=== PATIENT | female | born 1960 | race Caucasian/White ===

== ENCOUNTER 2016-07-19 16:42 | Inpatient (IN) ==
--- NOTE | 2016-07-19 20:33 | Internal Med History&Physical ---
<Arlene Ramirez M - Last Filed: 07/19/16 22:23> Date of Encounter: 07/19/16 Time of Encounter: 20:33 Assessment and Plan (1) Small bowel obstruction Current visit: No Status: Acute Patient presented with abdominal pain, nausea, and vomiting. CT abd/pelvis showed small obstruction involving portions of the ileum and jejunum with transition point anterior mid abdomen in the midline possibly relating to adhesions. NG tube to intermittent wall suction NPO IV zofran PRN for nausea IV toradol and dilaudid PRN for pain IV fluids 0.9NS at 100mL/hr Consult to Surgery, Spoke with Dr. Cobb, he will see patient tomorrow. (2) Hypertension Current visit: Yes Status: Acute Hold PO lisinopril Metoprolol 5mg IVP PRN Q6hr for SBP > 180 or DBP > 100 Qualifiers: Hypertension type: essential hypertension Qualified Code(s): I10 - Essential (primary) hypertension (3) Chronic pain Current visit: Yes Status: Acute Patient reports right leg with RSD, chronic pain after multiple surgeries. She takes methadone, vicodin and ibuprofen at home. Holding PO medications. IV toradol and dilaudid PRN for pain. If pain not controlled, consider consult to pain management. Narcan PRN for respiratory depression. Qualifiers: Chronic pain type: other chronic postprocedural pain Qualified Code(s): G89.28 - Other chronic postprocedural pain (4) DVT prophylaxis Current visit: Yes Status: Acute Ambulate with assistance anti-embolic stockings Lovenox 40mg SQ daily Internal Medicine - H&P: HPI Chief complaint: abd pain, vomiting Admitted From: Intrahospital Transfer Plans for Post Hospital Care: Home History of present illness: Ms. Blackman is a 56 year old female with hypertension, chronic pain syndrome, history of breast cancer status post bilateral mastectomy and colon cancer status post partial colectomy in remission who presented to [place] emergency department with abdominal pain nausea vomiting. She denies any chest pain, palpitations, headache, lightheadedness, dizziness. She reports she did have one normal bowel movement today. Pain is located in the upper abdomen and radiates back and forth across the abdomen, and is described as severe. He remission by ED was significant for elevated white blood cell count 15.8. Abdominal and pelvic CT showed small bowel obstruction and for allowing portions of the ileum and jejunum with transition point in the anterior mid abdomen in the midline possibly related to adhesions. On exam, patient is alert and oriented, in no acute distress. G-tube to low wall suction with scant amount of drainage. Has regular rate and rhythm, lungs are clear bilaterally to auscultation. Abdomen is distended with hypoactive bowel sounds diffuse tenderness worse in the epigastric area. Past Med Surg Social Fam HX - Past Medical History Medical history: cancer (breast CA s/p Bilateral mastectomy. Colon CA s/p partial colectomy), hypertension, other (Right leg chronic pain syndrome) Psychiatric history: anxiety, depression - Past Surgical History Surgical History: breast surgery, cancer surgery, colectomy, hysterectomy, orthopedic, other (multiple surgeries on RLE), FARIDA/BSO - Social History Smoking Status: Former smoker (40 pack year history) Smokeless Tobacco Status: No Alcohol use: none Drug use: none - Family History Mother Age: 88 Family Member Ethnicity: Non- Living Status: Still Living Hx Family Cancer: Yes (breast cancer) Hx Family Medical Disorders: (diabetes) Father Family Member Ethnicity: Non- Living Status: Age at : 50 Cause of : Parkinsons Hx Family Cancer: Yes (breast cancer) Hx Family Medical Disorders: Yes (renal disease) Internal Medicine - H&P: Meds Ibuprofen [Motrin] 800 mg PO Q8HR PRN 05/02/15 [History] Lamotrigine [Lamictal] 100 mg PO BID 05/02/15 [History] Methadone 10 mg PO Q12HR 05/02/15 [History] Anastrozole [Arimidex] 1 mg PO HS 07/19/16 [History] DiphenhydraMINE [Benadryl] 25 mg PO HS PRN 07/19/16 [History] LORazepam [Ativan] 0.5 mg PO BID PRN 07/19/16 [History] Lisinopril/Hydrochlorothiazide [Zestoretic 20-12.5 mg Tablet] 1 each PO QAM 03/25 [History] Oxycodone HCl/Acetaminophen [Percocet 5-325 mg Tablet] 1 each PO TID PRN [History] Sennosides/Docusate Sodium [Senna Plus] 4 each PO HS PRN 07/19/16 [History] Allergies Erythromycin Base Allergy (Verified 05/02/15 19:29) Anaphylaxis Penicillins [PCN] Allergy (Verified 05/02/15 19:29) Rash Tetracycline Allergy (Verified 05/02/15 19:29) Anaphylaxis All Systems PM: A 10-system review of systems was performed and is negative for pertinent findings except as documented above in the HPI. - Constitutional Constitutional: no chills, no fever(s), no night sweats - EENT Eyes: no change in vision, no discharge, no pain, no photophobia Ears: no ear discharge, no ear pain, no tinnitus Nose, mouth and throat: no dysphagia, no nasal discharge, no neck pain, no sore throat - Cardiovascular Cardiovascular ROS IM: no chest pain, no diaphoresis, no dyspnea, no lightheadedness, no palpitations, no syncope - Respiratory Respiratory: no cough, no dyspnea, no wheezing, no excessive phlegm production - Gastrointestinal Gastrointestinal: abdominal pain, bloating, nausea, vomiting, no diarrhea, no hematemesis, no hematochezia, no melena - Genitourinary Genitourinary: no change in urinary stream, no dysuria, no flank pain, no hematuria - Musculoskeletal Musculoskeletal ROS IM: no numbness, no tingling - Integumentary Integumentary IM: no rash, no unusual bruising - Neurological Neurological ROS: no confusion, no convulsions, no focal weakness, no numbness, no tingling, no tremor(s) - Hematologic/Lymphatic Hematologic/Lymphatic: no easy bruising - Constitutional Vitals: Temp Pulse Resp BP Pulse Ox 97.9 F 86 18 187/84 97 07/19/16 19:02 07/19/16 19:02 07/19/16 19:02 07/19/16 19:02 07/19/16 19:02 General appearance: Present: A&O X 3, no acute distress - Head Head exam: Present: atraumatic, normocephalic - Eye Eye exam: Present: PERRL, conjuntiva pink, sclera anicteric Pupils: Present: PERRL - Neck Neck exam general surgery: Present: supple, trachea midline. Absent: lymphadenopathy - Respiratory Respiratory exam: Present: CTAB. Absent: accessory muscle use, rales, rhonchi, wheezes - Cardiovascular Cardiovascular exam: Present: RRR, +S1, +S2. Absent: diastolic murmur, gallop, rubs, systolic murmur - GI/Abdominal GI/Abdominal exam: Present: diminished bowel sounds, distended, soft, tenderness , no peritoneal signs - Extremities Exam Extremities exam: Present: warm, radial pulses palpable and symetrical. Absent : calf tenderness, cyanotic, pedal edema - Neurological Exam Neurological exam: Present: CN II-XII intact, oriented X3, no focal deficits. Absent: facial droop, speech deficit - Skin Skin exam: Present: dry, intact Internal Med - H&P Results - Labs Labs: Labs from [facility] ED: Hgb 12.3 Hct 37.7 WBC 15.8 PLT 338 Na 137 K 4.5 Cl 105 CO2 21 BUN 19 Cr 0.82 Glu 192 <Tommy Diggs - Last Filed: 07/20/16 05:52> Date of Encounter: 07/19/16 Internal Medicine - H&P: HPI History of present illness: Ms. Blackman is a 56 year old female All Systems PM: A 10-system review of systems was performed and is negative for pertinent findings except as documented above in the HPI. - Constitutional Vitals: Temp Pulse Resp BP Pulse Ox 99.0 F 86 16 130/76 94 L 07/20/16 03:20 07/20/16 03:20 07/20/16 03:20 07/20/16 03:20 07/20/16 03:20 Internal Med - H&P Results - Impressions ITS Impressions KUB X-Ray 07/19/16 23:12 IMPRESSION: 1. Nasogastric tube tip terminates in the region of the gastric antrum/pylorus. D/ / Larisa Ramos MD / Larisa Ramos MD Interpreting Provider: Larisa Ramos MD - Attending Attestation I examined this patient and my medical decision-making was reviewed with the COOK CHILI/PA/Advanced Practice Nurse/Resident Physician. I agree with the documented findings, disposition and treatment plan as described except to the extent set forth below. 56 Y/F with abdominal bloating, nausea, vomiting. Had normal BM today. CT abdomen showed small bowel obstruction involving portions of jejunum and ileum with transition point in the mid abdomen in the midline possibly relating to adhesions. Dr Cobb from surgery notified. NPO, NG tube, analgesia.
[2016-07-19] MEDS ORDERED: Ondansetron 4 MG/2 ML VIAL IVP PRN (21:44)
[2016-07-19] MEDS ORDERED: *HR* HYDROmorphone (PF) 1 MG/ML SYRINGE IVP PRN ×2 (21:44→21:57)
[2016-07-19] MEDS ORDERED: Ketorolac 30 MG/ML VIAL IVP PRN (21:44)
[2016-07-19] MEDS ORDERED: Naloxone 0.4 MG/ML INJ IVP PRN (21:44)
[2016-07-19] MEDS ORDERED: *HR* Metoprolol 5 MG/5 ML VIAL IVP PRN (21:57)
[2016-07-20] MEDS: 0.9 % Sodium Chloride 1,000 ML IVC SCH ×3 (00:16→16:38)
[2016-07-20] MEDS ORDERED: *HR* OxyCODONE/APAP 5/325 TABLET PO PRN (05:42)
[2016-07-20] MEDS ORDERED: *HR* LORazepam 0.5 MG TABLET PO PRN (05:42)
[2016-07-20 05:44] LABS: Basophils % 0.3 %; Eosinophils % 0.1 %; Hematocrit 32.9 % (35.3-44.9); Hemoglobin 10.6 g/dL (11.5-15.4); Immature Granulocytes % 0.7 % (0-4); Lymphocytes % 13.5 %; Mean Corpuscular HGB Conc 32.2 g/dL (31.6-35.5); Mean Corpuscular Hemoglobin 29.7 pg (28.0-33.3); Mean Corpuscular Volume 92.2 fL (83.0-100.0); Mean Platelet Volume 9.9 fL (9.4-12.4); Monocytes # 0.9 K/mcL (0.0-1.3); Monocytes % 5.8 %; Platelet Count 331 K/mcL (140-400); Red Blood Count 3.57 M/mcL (3.82-4.97); Red Cell Distribution Width 13.2 % (11.5-14.5); Segmented Neutrophils % 79.6 %
[2016-07-20 06:01] LABS: BUN/Creatinine Ratio 22 (6-26); Blood Urea Nitrogen 17 mg/dL (7-20); Calcium 8.9 mg/dL (8.6-10.8); Carbon Dioxide 20 mEq/L (19-29); Chloride 107 mEq/L (98-109); Glucose 133 mg/dL (70-99); Osmolality,Calculated 291 (280-300); Potassium 4.3 mEq/L (3.5-4.5); Sodium 139 mEq/L (136-145); eGFR For African Americans > 60 (> 60); eGFR For Non-African Americans > 60 (> 60)
[2016-07-20] MEDS: *HR* Enoxaparin 40 MG/0.4 ML SYRINGE SQ SCH (06:23)
[2016-07-20] MEDS: *HR* Methadone 10 MG TABLET PO SCH ×4 (06:24→20:02)
[2016-07-20] MEDS: lamoTRIgine 100 MG TABLET PO SCH ×2 (08:41→20:03)
[2016-07-20] MEDS ORDERED: Lisinopril-HCTZ 20-12.5mg TABLET PO SCH (09:00)
[2016-07-20] MEDS ORDERED: Ondansetron 4 MG/2 ML VIAL IVP PRN (09:34)
--- NOTE | 2016-07-20 09:35 | Internal Med Progress Note ---
Date of Encounter: 07/20/16 Time of Encounter: 09:35 - Assessment and plan (1) Small bowel obstruction Current Visit: No Status: Acute Assessment and plan: CT abd/pelvis consistent with SBO involving portions of the ileum and jejunum with transition point anterior mid abdomen Likely secondary to adhesions, history of colon ca and bowel surgery in the past Continue NGT to low suction awaiting surgical consultation IV fluids NPO Pain control (2) Hypertension Current Visit: Yes Status: Chronic Assessment and plan: BP within acceptable limits continue current management Qualifiers: Hypertension type: essential hypertension Qualified Code(s): I10 - Essential (primary) hypertension (3) Chronic pain Current Visit: Yes Status: Acute Assessment and plan: chronically on Methadone, will continue Qualifiers: Chronic pain type: other chronic postprocedural pain Qualified Code(s): G89.28 - Other chronic postprocedural pain (4) Morbid obesity with BMI of 40.0-44.9, adult Current Visit: Yes Status: Chronic (5) DVT prophylaxis Current Visit: Yes Status: Acute Assessment and plan: Lovenox SQ (6) Anemia Current Visit: Yes Status: Acute Assessment and plan: Likely Dilutional No active bleeding noted at this time Will continue to monitor Qualifiers: Anemia type: unspecified type Qualified Code(s): D64.9 - Anemia, unspecified - Subjective Interval history: Patient seen and examined with present at bedside. Resting in bed, states her symptoms are better compared to the previous day. Reports of passing gas and no abd discomfort at this time. NGT hooked to suction continues to have significant billious drainage. Reports of chronic RLE pain due to reflex sympathetic dystrophy secondary to multiple surgeries in that leg. Reports of being on methadone for the chronic pain. - Constitutional Vitals: Temp Pulse Resp BP Pulse Ox 98.7 F 84 18 131/83 95 07/20/16 06:57 07/20/16 06:57 07/20/16 06:57 07/20/16 06:57 07/20/16 06:57 General appearance: Present: cooperative, A&O X 3 (NGT in place), morbidly obese , pleasant, no acute distress, answers questions appropriately - Head Head exam: Present: atraumatic, normocephalic - Eye Eye exam: Present: normal appearance, conjuntiva pink, sclera anicteric - Respiratory Respiratory exam: Present: CTAB. Absent: respiratory distress, wheezes - Cardiovascular Cardiovascular exam: Present: RRR, +S1, +S2 - GI/Abdominal GI/Abdominal exam: Present: normal bowel sounds, soft, no peritoneal signs. Absent: distended, guarding, rebound, rigid, tenderness - Extremities Exam Extremities exam: Present: pedal edema, warm, radial pulses palpable and symetrical. Absent: calf tenderness - Neurological Exam Neurological exam: Present: alert, oriented X3 - Psychiatric Psychiatric exam: Present: normal affect, normal mood Internal Medicine: Result - Labs CBC & Chem 7: 07/20/16 05:00 07/20/16 05:00 Labs: Short CBC 07/20/16 Range/Units 05:00 WBC 15.1 H (4.3-11.1) K/mcL Hgb 10.6 L D (11.5-15.4) g/dL Hct 32.9 L (35.3-44.9) % Plt Count 331 (140-400) K/mcL Neutrophils # 12.0 H (1.6-8.9) K/mcL BMP 07/20/16 05:00 Sodium 139 Potassium 4.3 Chloride 107 Carbon Dioxide 20 BUN 17 Creatinine 0.77 Glucose 133 H Calcium 8.9 - Impressions Impressions KUB X-Ray 07/19/16 23:12 IMPRESSION: 1. Nasogastric tube tip terminates in the region of the gastric antrum/pylorus. D/ / 07/20/2016 07:03:43 Larisa Ramos MD / sabina Interpreting Provider: Larisa Ramos MD Consult Discharge Plan - Plan Referrals: Scotty Ayala DO [Primary Care Provider] -
--- NOTE | 2016-07-20 15:28 | General Surgery Consult Note ---
Date of Encounter: 07/20/16 Time of Encounter: 11:05 Assessment and Plan (1) Small bowel obstruction Current Visit: No Status: Acute CT abd/pelvis showed small obstruction involving portions of the ileum and jejunum with transition point anterior mid abdomen in the midline possibly relating to adhesions. NG tube to LIWS NPO with bowel rest anti-emetics PRN for nausea Supportive care/pain control Continue IV fluids at 100mL/hr Consider SBFT Friday if no improvement. If NG output is increased tomorrow, consider acute abdominal series. Will continue to follow and evaluate. (2) History of colon cancer Current Visit: Yes Status: Acute (3) Hypertension Current Visit: Yes Status: Chronic Management per medicine service. Qualifiers: Hypertension type: essential hypertension Qualified Code(s): I10 - Essential (primary) hypertension (4) DVT prophylaxis Current Visit: Yes Status: Acute Ambulate with assistance anti-embolic stockings Lovenox 40mg SQ daily History of Present Illness Consult date: 07/19/16 Reason for consult: abdominal pain Requesting physician: Arlene Ramirez History of present illness: Ms. Blackman is a 56 year old female transferred from [place] ED for abdominal pain with associated nausea and vomiting. Patient denies any chest pain, lightheadedness, dizziness, dyspnea. She states the pain is severe and located in the upper abdomen and radiates across the abdomen. WBC in the ED found to be 15.8. Abdominal and pelvic CT showed small bowel obstruction, possibly related to adhesions. Patient states she feels alejandra overall today, but still lacking appetite. Ms. Blackman denies any flatus today. PMHx of HTN, chronic pain syndrome, Hx of breast cancer s/p bilateral mastectomy , and Hx of colon cancer s/p partial colectomy (approx 12-13 years ago). Past Med Surg Social Fam HX - Past Medical History Source: patient Medical history: cancer (breast CA s/p Bilateral mastectomy. Colon CA s/p partial colectomy), hypertension, other (Right leg chronic pain syndrome) Psychiatric history: anxiety, depression - Past Surgical History Surgical History: breast surgery, cancer surgery, colectomy, hysterectomy, orthopedic, other (multiple surgeries on RLE), FARIDA/BSO - Social History Smoking Status: Former smoker (40 pack year history) Smokeless Tobacco Status: No Alcohol use: none Drug use: none - Family History Mother Age: 88 Family Member Ethnicity: Non- Living Status: Still Living Hx Family Cancer: Yes (breast cancer) Hx Family Medical Disorders: (diabetes) Father Family Member Ethnicity: Non- Living Status: Age at : 50 Cause of : Parkinsons Hx Family Cancer: Yes (breast cancer) Hx Family Medical Disorders: Yes (renal disease) Medications and Allergies Ibuprofen [Motrin] 800 mg PO Q8HR PRN 05/02/15 [History] Lamotrigine [Lamictal] 100 mg PO BID 05/02/15 [History] Methadone 10 mg PO Q12HR 05/02/15 [History] Anastrozole [Arimidex] 1 mg PO HS 07/19/16 [History] DiphenhydraMINE [Benadryl] 25 mg PO HS PRN 07/19/16 [History] LORazepam [Ativan] 0.5 mg PO BID PRN 07/19/16 [History] Lisinopril/Hydrochlorothiazide [Zestoretic 20-12.5 mg Tablet] 1 each PO QAM 03/25 [History] Oxycodone HCl/Acetaminophen [Percocet 5-325 mg Tablet] 1 each PO TID PRN [History] Sennosides/Docusate Sodium [Senna Plus] 4 each PO HS PRN 07/19/16 [History] Allergies Erythromycin Base Allergy (Verified 05/02/15 19:29) Anaphylaxis Penicillins [PCN] Allergy (Verified 05/02/15 19:29) Rash Tetracycline Allergy (Verified 05/02/15 19:29) Anaphylaxis Review of Systems All systems PM: A 10-system review of systems was performed and is negative for pertinent findings except as documented above in the HPI. - Constitutional no chills, no fever(s) - EENT Nose, mouth and throat: no dysphagia - Cardiovascular no chest pain, no dyspnea - Respiratory no cough, no dyspnea - Gastrointestinal abdominal pain, nausea, vomiting, no diarrhea - Genitourinary Genitourinary: no dysuria - Musculoskeletal radiating pain into limb - Neurological no confusion General Surgery Exam Initial Vital Signs Temp Pulse Resp BP Pulse Ox 97.9 F 86 18 187/84 97 07/19/16 19:02 07/19/16 19:02 07/19/16 19:02 07/19/16 19:02 07/19/16 19:02 - General physical appearance well developed, well nourished, no distress - Eyes normal ocular movement - ENT normal mucosa, atraumatic, normocephalic - Neck trachea midline - Respiratory normal respiratory effort - Integumentary Integumentary general surgery: Present: warm and dry, no abnormal pigmentation - Neurologic Present: CN 2-12 grossly intact - Psychiatric Psychiatric general surgery: Present: A&Ox3, speech is normal, memory intact Exam Initial Vital Signs Temp Pulse Resp BP Pulse Ox 97.9 F 86 18 187/84 97 07/19/16 19:02 07/19/16 19:02 07/19/16 19:02 07/19/16 19:02 07/19/16 19:02 Results - Labs 07/20/16 05:00 07/20/16 05:00 Abnormal lab results WBC 15.1 K/mcL (4.3-11.1) H 07/20/16 05:00 RBC 3.57 M/mcL (3.82-4.97) L 07/20/16 05:00 Hgb 10.6 g/dL (11.5-15.4) L D 07/20/16 05:00 Hct 32.9 % (35.3-44.9) L 07/20/16 05:00 Neutrophils # 12.0 K/mcL (1.6-8.9) H 07/20/16 05:00 Glucose 133 mg/dL (70-99) H 07/20/16 05:00 POC Glucose 155 (58-89) H 07/20/16 11:19 Diabetes panel 07/20/16 Range/Units 05:00 Sodium 139 (136-145) mEq/L Potassium 4.3 (3.5-4.5) mEq/L Chloride 107 (98-109) mEq/L Carbon Dioxide 20 (19-29) mEq/L BUN 17 (7-20) mg/dL Creatinine 0.77 (0.57-1.11) mg/dL Glucose 133 H (70-99) mg/dL Calcium 8.9 (8.6-10.8) mg/dL Calcium panel 07/20/16 Range/Units 05:00 Calcium 8.9 (8.6-10.8) mg/dL Pituitary panel 07/20/16 Range/Units 05:00 Sodium 139 (136-145) mEq/L Potassium 4.3 (3.5-4.5) mEq/L Chloride 107 (98-109) mEq/L Carbon Dioxide 20 (19-29) mEq/L BUN 17 (7-20) mg/dL Creatinine 0.77 (0.57-1.11) mg/dL Glucose 133 H (70-99) mg/dL Calcium 8.9 (8.6-10.8) mg/dL Adrenal panel 07/20/16 Range/Units 05:00 Sodium 139 (136-145) mEq/L Potassium 4.3 (3.5-4.5) mEq/L Chloride 107 (98-109) mEq/L Carbon Dioxide 20 (19-29) mEq/L BUN 17 (7-20) mg/dL Creatinine 0.77 (0.57-1.11) mg/dL Glucose 133 H (70-99) mg/dL Calcium 8.9 (8.6-10.8) mg/dL All other labs normal. Consult Discharge Plan - Plan Referrals: Scotty Ayala DO [Primary Care Provider] -
[2016-07-20] MEDS: *HR* Morphine 2 MG/ML SYRINGE IVP PRN (15:36)
[2016-07-20] MEDS ORDERED: *HR* Metoprolol 5 MG/5 ML VIAL IVP PRN (15:59)
[2016-07-20] MEDS ORDERED: Water for inj. (sterile) 10 ML IV ONE (17:24)
[2016-07-20] MEDS: Ketorolac 30 MG/ML VIAL IVP PRN ×2 (17:39→23:45)
[2016-07-20] MEDS: *HR* LORazepam 2 MG/ML VIAL IVP PRN (17:39)
[2016-07-20] MEDS: Anastrozole 1 MG TABLET PO SCH (20:02)
[2016-07-21] MEDS: *HR* Methadone 10 MG TABLET PO SCH ×2 (06:25→17:18)
[2016-07-21] MEDS: *HR* Enoxaparin 40 MG/0.4 ML SYRINGE SQ SCH (06:25)
[2016-07-21 07:34] LABS: Basophils # 0.1 K/mcL (0.0-0.2); Basophils % 0.4 %; Eosinophils # 0.1 K/mcL (0.0-0.6); Eosinophils % 0.5 %; Hematocrit 32.8 % (35.3-44.9); Hemoglobin 10.5 g/dL (11.5-15.4); Immature Granulocytes % 0.6 % (0-4); Lymphocytes # 2.3 K/mcL (0.6-4.6); Lymphocytes % 19.8 %; Mean Corpuscular Hemoglobin 30.3 pg (28.0-33.3); Mean Corpuscular Volume 94.5 fL (83.0-100.0); Mean Platelet Volume 9.6 fL (9.4-12.4); Monocytes # 0.9 K/mcL (0.0-1.3); Monocytes % 7.4 %; Neutrophils # 8.2 K/mcL (1.6-8.9); Platelet Count 294 K/mcL (140-400); Red Blood Count 3.47 M/mcL (3.82-4.97); Red Cell Distribution Width 13.4 % (11.5-14.5); Segmented Neutrophils % 71.3 %
[2016-07-21 07:44] LABS: BUN/Creatinine Ratio 24 (6-26); Blood Urea Nitrogen 20 mg/dL (7-20); Calcium 9.1 mg/dL (8.6-10.8); Carbon Dioxide 26 mEq/L (19-29); Chloride 107 mEq/L (98-109); Glucose 115 mg/dL (70-99); Magnesium 1.8 mg/dL (1.6-2.6); Osmolality,Calculated 300 (280-300); Phosphorous 3.9 mg/dL (2.3-4.7); Potassium 3.7 mEq/L (3.5-4.5); Sodium 143 mEq/L (136-145); eGFR For African Americans > 60 (> 60); eGFR For Non-African Americans > 60 (> 60)
[2016-07-21] MEDS: Ketorolac 30 MG/ML VIAL IVP PRN ×3 (08:01→21:30)
[2016-07-21] MEDS: *HR* LORazepam 2 MG/ML VIAL IVP PRN ×2 (08:01→21:30)
[2016-07-21] MEDS: lamoTRIgine 100 MG TABLET PO SCH ×2 (08:02→20:37)
--- NOTE | 2016-07-21 14:58 | Internal Med Progress Note ---
Date of Encounter: 07/21/16 Time of Encounter: 14:57 - Assessment and plan (1) Small bowel obstruction Current Visit: No Status: Acute Assessment and plan: CT abd/pelvis consistent with SBO involving portions of the ileum and jejunum with transition point anterior mid abdomen Likely secondary to adhesions, history of colon ca and bowel surgery in the past Continue NGT to low suction surgical consultation appreciated IV fluids NPO Pain control (2) Hypertension Current Visit: Yes Status: Chronic Assessment and plan: BP within acceptable limits continue current management Qualifiers: Hypertension type: essential hypertension Qualified Code(s): I10 - Essential (primary) hypertension (3) Chronic pain Current Visit: Yes Status: Acute Assessment and plan: chronically on Methadone, will continue Qualifiers: Chronic pain type: other chronic postprocedural pain Qualified Code(s): G89.28 - Other chronic postprocedural pain (4) Morbid obesity with BMI of 40.0-44.9, adult Current Visit: Yes Status: Chronic (5) DVT prophylaxis Current Visit: Yes Status: Acute Assessment and plan: Lovenox SQ (6) Anemia Current Visit: Yes Status: Acute Assessment and plan: Likely Dilutional No active bleeding noted at this time Will continue to monitor Qualifiers: Anemia type: unspecified type Qualified Code(s): D64.9 - Anemia, unspecified - Subjective Interval history: Patient seen and examined at bedside. Resting in bed, states her symptoms are better compared to the previous day. Reports of having a small bowel movement in the last hour. - Constitutional Vitals: Temp Pulse Resp BP Pulse Ox 98.3 F 81 18 163/84 95 07/21/16 14:29 07/21/16 14:29 07/21/16 14:29 07/21/16 14:29 07/21/16 14:29 General appearance: Present: cooperative, A&O X 3 (NGT in place), morbidly obese , pleasant, no acute distress, answers questions appropriately - Head Head exam: Present: atraumatic, normocephalic - Eye Eye exam: Present: normal appearance, conjuntiva pink, sclera anicteric - Respiratory Respiratory exam: Present: CTAB. Absent: accessory muscle use, rales, rhonchi, wheezes - Cardiovascular Cardiovascular exam: Present: RRR, +S1, +S2. Absent: diastolic murmur, gallop, rubs, systolic murmur - GI/Abdominal GI/Abdominal exam: Present: hypoactive bowel sounds, soft, no peritoneal signs. Absent: rebound, tenderness - Extremities Exam Extremities exam: Present: pedal edema, warm, radial pulses palpable and symetrical. Absent: calf tenderness - Neurological Exam Neurological exam: Present: alert, oriented X3 - Psychiatric Psychiatric exam: Present: normal affect, normal mood Internal Medicine: Result - Labs CBC & Chem 7: 07/21/16 07:00 07/21/16 07:00 Labs: Short CBC 07/21/16 Range/Units 07:00 WBC 11.5 H (4.3-11.1) K/mcL Hgb 10.5 L (11.5-15.4) g/dL Hct 32.8 L (35.3-44.9) % Plt Count 294 (140-400) K/mcL Neutrophils # 8.2 (1.6-8.9) K/mcL BMP 07/21/16 07:00 Sodium 143 Potassium 3.7 Chloride 107 Carbon Dioxide 26 BUN 20 Creatinine 0.82 Glucose 115 H Calcium 9.1 - Impressions Impressions KUB X-Ray 07/19/16 23:12 IMPRESSION: 1. Nasogastric tube tip terminates in the region of the gastric antrum/pylorus. D/ / 07/20/2016 07:03:43 Larisa Ramos MD / sabina Interpreting Provider: Larisa Ramos MD Chest/Abdomen X-ray 07/21/16 08:21 IMPRESSION: Good position of the nasogastric tube. No evidence of bowel obstruction D/ / Rai Nichole MD / Rai Nichole MD Interpreting Provider: Rai Nichole MD - VTE Documentation of Mechanical Device: Graduated compression elastic hosiery Consult Discharge Plan - Plan Referrals: Scotty Ayala DO [Primary Care Provider] -
--- NOTE | 2016-07-21 15:47 | General Surgery Progress Note ---
Date of Encounter: 07/21/16 Time of Encounter: 10:10 - Assessment and Plan (1) Small bowel obstruction Current Visit: No Status: Acute CT abd/pelvis showed small obstruction involving portions of the ileum and jejunum with transition point anterior mid abdomen in the midline possibly relating to adhesions. AAS today showed good position of NG tube and no evidence of bowel obstruction. NG tube to LIWS (1816ml total yesterday) NPO with bowel rest anti-emetics PRN for nausea Supportive care/pain control Continue IV fluids @125ml/hr Consider SBFT Friday if no improvement. Will continue to follow and evaluate. (2) History of colon cancer Current Visit: Yes Status: Acute (3) Hypertension Current Visit: Yes Status: Chronic Management per medicine service. Qualifiers: Hypertension type: essential hypertension Qualified Code(s): I10 - Essential (primary) hypertension (4) DVT prophylaxis Current Visit: Yes Status: Acute Ambulate with assistance anti-embolic stockings Lovenox 40mg SQ daily Subjective Patient reports: other Narrative: Denies flatus or bowel movement. Denies vomiting. Admits to severe headache, mild rectal pressure, decreased urination. History of urinary incontinence. Objective Vital Signs - Last 8 Hours Temp Pulse Resp BP Pulse Ox 07/21/16 14:29 98.3 F 81 18 163/84 95 07/21/16 11:00 98.1 F 60 16 152/84 95 Intake and Output 07/20/16 07/21/16 07/21/16 23:59 07:59 15:59 Intake Total 103 / 103 1000 / 1000 Output Total 566 / 566 600 / 600 550 / 550 Balance -463 / -463 400 / 400 -550 / -550 Intake: IV Fluids 103 / 103 1000 / 1000 Water for inj. (sterile) 1 / 1 10 ML As IV .[facility] Rx#:[id number] 0.9 % Sodium Chloride 1, 102 / 102 1000 / 1000 000 ML @ 125 mls/hr IVC . Q8H [facility] Rx#:[id number] Oral 0 / 0 0 / 0 Output: Urine 450 / 450 200 / 200 100 / 100 Gastric Drainage 116 / 116 400 / 400 450 / 450 Other: Meal NPO dinner NPO lunch Stool Size Small Stool Consistency formed Stool Color Brown Weight 114.929 kg Blood Glucose* 116 116 125 Patient Weight 07/21/16 23:59 Weight 114.929 kg - General physical appearance well developed, well nourished, no distress - Eyes normal ocular movement - ENT normal mucosa, atraumatic, normocephalic - Neck Neck exam: trachea midline - Respiratory normal respiratory effort, clear to auscultation - Cardiovascular Cardiovascular exam: Present: tachycardia - Abdomen Abdomen: Present: bowel sounds present (hypoactive), soft, tender (diffuse) - Integumentary no rash - Neurologic CN 2-12 grossly intact - Psychiatric oriented to time, oriented to person, oriented to place, speech is normal, memory intact - Labs 07/21/16 07:00 07/21/16 07:00 Diabetes panel 07/21/16 Range/Units 07:00 Sodium 143 (136-145) mEq/L Potassium 3.7 (3.5-4.5) mEq/L Chloride 107 (98-109) mEq/L Carbon Dioxide 26 (19-29) mEq/L BUN 20 (7-20) mg/dL Creatinine 0.82 (0.57-1.11) mg/dL Glucose 115 H (70-99) mg/dL Calcium 9.1 (8.6-10.8) mg/dL Calcium panel 07/21/16 Range/Units 07:00 Calcium 9.1 (8.6-10.8) mg/dL Phosphorus 3.9 (2.3-4.7) mg/dL Pituitary panel 07/21/16 Range/Units 07:00 Sodium 143 (136-145) mEq/L Potassium 3.7 (3.5-4.5) mEq/L Chloride 107 (98-109) mEq/L Carbon Dioxide 26 (19-29) mEq/L BUN 20 (7-20) mg/dL Creatinine 0.82 (0.57-1.11) mg/dL Glucose 115 H (70-99) mg/dL Calcium 9.1 (8.6-10.8) mg/dL Adrenal panel 07/21/16 Range/Units 07:00 Sodium 143 (136-145) mEq/L Potassium 3.7 (3.5-4.5) mEq/L Chloride 107 (98-109) mEq/L Carbon Dioxide 26 (19-29) mEq/L BUN 20 (7-20) mg/dL Creatinine 0.82 (0.57-1.11) mg/dL Glucose 115 H (70-99) mg/dL Calcium 9.1 (8.6-10.8) mg/dL - VTE Documentation of Mechanical Device: Graduated compression elastic hosiery Consult Discharge Plan - Plan Referrals: Scotty Ayala DO [Primary Care Provider] -
[2016-07-21] MEDS: 0.9 % Sodium Chloride 1,000 ML IVC SCH (17:42)
[2016-07-21] MEDS: Anastrozole 1 MG TABLET PO SCH (20:37)
[2016-07-22] MEDS: 0.9 % Sodium Chloride 1,000 ML IVC SCH ×4 (01:41→21:44)
[2016-07-22] MEDS: *HR* Morphine 2 MG/ML SYRINGE IVP PRN ×2 (02:59→21:43)
[2016-07-22] MEDS: *HR* Enoxaparin 40 MG/0.4 ML SYRINGE SQ SCH (03:35)
[2016-07-22 05:12] LABS: Basophils % 0.4 %; Eosinophils % 0.3 %; Hematocrit 30.6 % (35.3-44.9); Hemoglobin 9.9 g/dL (11.5-15.4); Immature Granulocytes % 0.5 % (0-4); Lymphocytes # 1.9 K/mcL (0.6-4.6); Lymphocytes % 19.4 %; Mean Corpuscular HGB Conc 32.4 g/dL (31.6-35.5); Mean Corpuscular Hemoglobin 30.4 pg (28.0-33.3); Mean Corpuscular Volume 93.9 fL (83.0-100.0); Mean Platelet Volume 9.6 fL (9.4-12.4); Monocytes # 0.7 K/mcL (0.0-1.3); Monocytes % 7.4 %; Neutrophils # 7.1 K/mcL (1.6-8.9); Platelet Count 268 K/mcL (140-400); Red Blood Count 3.26 M/mcL (3.82-4.97); Red Cell Distribution Width 13.2 % (11.5-14.5)
[2016-07-22 05:25] LABS: BUN/Creatinine Ratio 27 (6-26); Blood Urea Nitrogen 21 mg/dL (7-20); Calcium 8.6 mg/dL (8.6-10.8); Carbon Dioxide 26 mEq/L (19-29); Chloride 107 mEq/L (98-109); Glucose 108 mg/dL (70-99); Magnesium 1.9 mg/dL (1.6-2.6); Osmolality,Calculated 304 (280-300); Phosphorous 4.5 mg/dL (2.3-4.7); Potassium 3.7 mEq/L (3.5-4.5); Sodium 145 mEq/L (136-145); eGFR For African Americans > 60 (> 60); eGFR For Non-African Americans > 60 (> 60)
[2016-07-22] MEDS: *HR* Methadone 10 MG TABLET PO SCH ×2 (06:02→18:10)
[2016-07-22] MEDS: lamoTRIgine 100 MG TABLET PO SCH ×2 (08:58→21:43)
[2016-07-22] MEDS: *HR* LORazepam 2 MG/ML VIAL IVP PRN (09:33)
[2016-07-22] MEDS ORDERED: Water for inj. (sterile) 10 ML IV ONE (09:40)
--- NOTE | 2016-07-22 10:07 | General Surgery Progress Note ---
Date of Encounter: 07/22/16 Time of Encounter: 07:25 - Assessment and Plan (1) Small bowel obstruction Current Visit: No Status: Acute CT abd/pelvis showed small obstruction involving portions of the ileum and jejunum with transition point anterior mid abdomen in the midline possibly relating to adhesions. AAS yesterday showed good position of NG tube and no evidence of bowel obstruction. NG tube to hernandez bag. If no nausea or vomiting with ice chips and continued flatus and BM can discontinue NG tube. NPO with bowel rest other than ice chips anti-emetics PRN for nausea Supportive care/pain control Continue IV fluids @125ml/hr Patient had a bowel movement yesterday Will continue to follow and evaluate. (2) History of colon cancer Current Visit: Yes Status: Acute (3) Hypertension Current Visit: Yes Status: Chronic Management per medicine service Qualifiers: Hypertension type: essential hypertension Qualified Code(s): I10 - Essential (primary) hypertension (4) DVT prophylaxis Current Visit: Yes Status: Acute Ambulate with assistance anti-embolic stockings Lovenox 40mg SQ daily Subjective Patient reports: no new complaints, feels better, bowel movement, afebrile Narrative: tolerating ice chips well, no nausea or vomiting Objective Vital Signs - Last 8 Hours Temp Pulse Resp BP Pulse Ox 07/22/16 06:00 98.0 F 78 18 138/68 98 07/22/16 03:38 98.6 F 78 14 143/76 95 Intake and Output 07/21/16 07/22/16 07/22/16 23:59 07:59 15:59 Intake Total 136 / 136 1224 / 1224 240 / 240 Output Total 600 / 600 1900 / 1900 0 / 0 Balance -464 / -464 -676 / -676 240 / 240 Intake: IV Fluids 136 / 136 864 / 864 0.9 % Sodium Chloride 1, 136 / 136 864 / 864 000 ML @ 125 mls/hr IVC . Q8H [facility] Rx#:[id number] Oral 0 / 0 360 / 360 240 / 240 Output: Urine 100 / 100 250 / 250 0 / 0 Gastric Drainage 500 / 500 1650 / 1650 Other: Meal NPO dinner NPO Weight 113.58 kg Blood Glucose* 123 109 Patient Weight 07/22/16 23:59 Weight 113.58 kg - General physical appearance well developed, well nourished, no distress - Eyes normal ocular movement - Neck Neck exam: trachea midline - Respiratory normal respiratory effort, clear to auscultation - Cardiovascular Cardiovascular exam: Present: RRR - Abdomen Abdomen: Present: bowel sounds present, soft, non tender - Integumentary no rash - Neurologic CN 2-12 grossly intact - Psychiatric oriented to time, oriented to person, oriented to place, speech is normal, memory intact - Labs 07/22/16 04:52 07/22/16 04:52 Diabetes panel 07/22/16 Range/Units 04:52 Sodium 145 (136-145) mEq/L Potassium 3.7 (3.5-4.5) mEq/L Chloride 107 (98-109) mEq/L Carbon Dioxide 26 (19-29) mEq/L BUN 21 H (7-20) mg/dL Creatinine 0.79 (0.57-1.11) mg/dL Glucose 108 H (70-99) mg/dL Calcium 8.6 (8.6-10.8) mg/dL Calcium panel 07/22/16 Range/Units 04:52 Calcium 8.6 (8.6-10.8) mg/dL Phosphorus 4.5 (2.3-4.7) mg/dL Pituitary panel 07/22/16 Range/Units 04:52 Sodium 145 (136-145) mEq/L Potassium 3.7 (3.5-4.5) mEq/L Chloride 107 (98-109) mEq/L Carbon Dioxide 26 (19-29) mEq/L BUN 21 H (7-20) mg/dL Creatinine 0.79 (0.57-1.11) mg/dL Glucose 108 H (70-99) mg/dL Calcium 8.6 (8.6-10.8) mg/dL Adrenal panel 07/22/16 Range/Units 04:52 Sodium 145 (136-145) mEq/L Potassium 3.7 (3.5-4.5) mEq/L Chloride 107 (98-109) mEq/L Carbon Dioxide 26 (19-29) mEq/L BUN 21 H (7-20) mg/dL Creatinine 0.79 (0.57-1.11) mg/dL Glucose 108 H (70-99) mg/dL Calcium 8.6 (8.6-10.8) mg/dL - VTE Documentation of Mechanical Device: Graduated compression elastic hosiery Consult Discharge Plan - Plan Referrals: Scotty Ayala DO [Primary Care Provider] - 07/31/16 9:30 am - Attending Attestation I examined this patient and my medical decision-making was reviewed with the SERVICE STATION OPERATOR/PA/Advanced Practice Nurse/Resident Physician. I agree with the documented findings, disposition and treatment plan as described except to the extent set forth below.
--- NOTE | 2016-07-22 10:57 | Internal Med Progress Note ---
Date of Encounter: 07/22/16 Time of Encounter: 10:55 - Assessment and plan (1) Small bowel obstruction Current Visit: No Status: Acute Assessment and plan: CT abd/pelvis consistent with SBO involving portions of the ileum and jejunum with transition point anterior mid abdomen Likely secondary to adhesions, history of colon ca and bowel surgery in the past Continue NGT to low suction surgical consultation appreciated IV fluids NPO Pain control Awaiting surgical clearance for removal of NGT and initiation of feeds (2) Hypertension Current Visit: Yes Status: Chronic Assessment and plan: BP within acceptable limits continue current management Qualifiers: Hypertension type: essential hypertension Qualified Code(s): I10 - Essential (primary) hypertension (3) Chronic pain Current Visit: Yes Status: Acute Assessment and plan: chronically on Methadone, will continue Qualifiers: Chronic pain type: other chronic postprocedural pain Qualified Code(s): G89.28 - Other chronic postprocedural pain (4) Morbid obesity with BMI of 40.0-44.9, adult Current Visit: Yes Status: Chronic (5) DVT prophylaxis Current Visit: Yes Status: Acute Assessment and plan: Lovenox SQ (6) Anemia Current Visit: Yes Status: Acute Assessment and plan: Likely Dilutional No active bleeding noted at this time Will continue to monitor Qualifiers: Anemia type: unspecified type Qualified Code(s): D64.9 - Anemia, unspecified - Subjective Interval history: Patient seen and examined at bedside. Resting in bed, states her symptoms are better compared to the previous day. No abd pain, nausea, vomiting reported at this time. - Constitutional Vitals: Temp Pulse Resp BP Pulse Ox 97.6 F 84 16 162/91 95 07/22/16 10:51 07/22/16 10:51 07/22/16 10:51 07/22/16 10:51 07/22/16 10:51 General appearance: Present: cooperative, A&O X 3 (NGT in place), morbidly obese , pleasant, no acute distress, answers questions appropriately - Head Head exam: Present: atraumatic, normocephalic - Eye Eye exam: Present: normal appearance, conjuntiva pink, sclera anicteric - Respiratory Respiratory exam: Present: CTAB. Absent: respiratory distress, wheezes - Cardiovascular Cardiovascular exam: Present: RRR, +S1, +S2. Absent: diastolic murmur, gallop, rubs, systolic murmur - GI/Abdominal GI/Abdominal exam: Present: distended (obese), normal bowel sounds, soft, no peritoneal signs. Absent: rebound, tenderness - Extremities Exam Extremities exam: Present: warm, radial pulses palpable and symetrical. Absent : pedal edema, tenderness - Neurological Exam Neurological exam: Present: alert, oriented X3 - Psychiatric Psychiatric exam: Present: normal affect, normal mood Internal Medicine: Result - Labs CBC & Chem 7: 07/22/16 04:52 07/22/16 04:52 Labs: Short CBC 07/22/16 Range/Units 04:52 WBC 9.9 (4.3-11.1) K/mcL Hgb 9.9 L (11.5-15.4) g/dL Hct 30.6 L (35.3-44.9) % Plt Count 268 (140-400) K/mcL Neutrophils # 7.1 (1.6-8.9) K/mcL BMP 07/22/16 04:52 Sodium 145 Potassium 3.7 Chloride 107 Carbon Dioxide 26 BUN 21 H Creatinine 0.79 Glucose 108 H Calcium 8.6 - Impressions Impressions Chest/Abdomen X-ray 07/21/16 08:21 IMPRESSION: Good position of the nasogastric tube. No evidence of bowel obstruction D/ / Rai Nichole MD / Rai Nichole MD Interpreting Provider: Rai Nichole MD - VTE Documentation of Mechanical Device: Graduated compression elastic hosiery Consult Discharge Plan - Plan Referrals: Scotty Ayala DO [Primary Care Provider] - 07/31/16 9:30 am
[2016-07-22] MEDS ORDERED: *HR* LORazepam 0.5 MG TABLET PO PRN (11:02)
[2016-07-22] MEDS ORDERED: Lisinopril-HCTZ 20-12.5mg TABLET PO SCH (11:03)
[2016-07-22] MEDS: Ketorolac 30 MG/ML VIAL IVP PRN (18:11)
[2016-07-22] MEDS: *HR* Metoprolol 5 MG/5 ML VIAL IVP SCH (18:41)
[2016-07-22] MEDS: Anastrozole 1 MG TABLET PO SCH (21:43)
[2016-07-22] MEDS: Pantoprazole 40 MG VIAL IVP SCH (22:31)
[2016-07-23] MEDS: *HR* Metoprolol 5 MG/5 ML VIAL IVP SCH ×2 (00:37→07:31)
[2016-07-23] MEDS: *HR* LORazepam 2 MG/ML VIAL IVP PRN (00:38)
[2016-07-23] MEDS: Ketorolac 30 MG/ML VIAL IVP PRN (05:03)
[2016-07-23] MEDS: *HR* Methadone 10 MG TABLET PO SCH ×2 (05:46→18:31)
[2016-07-23 06:05] LABS: Basophils # 0.1 K/mcL (0.0-0.2); Basophils % 0.5 %; Eosinophils # 0.1 K/mcL (0.0-0.6); Eosinophils % 0.9 %; Hematocrit 32.5 % (35.3-44.9); Hemoglobin 10.2 g/dL (11.5-15.4); Lymphocytes % 19.5 %; Mean Corpuscular HGB Conc 31.4 g/dL (31.6-35.5); Mean Corpuscular Hemoglobin 29.8 pg (28.0-33.3); Mean Platelet Volume 9.7 fL (9.4-12.4); Monocytes # 0.7 K/mcL (0.0-1.3); Monocytes % 6.5 %; Neutrophils # 7.2 K/mcL (1.6-8.9); Platelet Count 292 K/mcL (140-400); Red Blood Count 3.42 M/mcL (3.82-4.97); Red Cell Distribution Width 13.4 % (11.5-14.5); Segmented Neutrophils % 71.6 %
[2016-07-23 06:31] LABS: BUN/Creatinine Ratio 24 (6-26); Blood Urea Nitrogen 17 mg/dL (7-20); Calcium 8.8 mg/dL (8.6-10.8); Carbon Dioxide 26 mEq/L (19-29); Chloride 107 mEq/L (98-109); Glucose 82 mg/dL (70-99); Magnesium 1.8 mg/dL (1.6-2.6); Osmolality,Calculated 297 (280-300); Phosphorous 3.7 mg/dL (2.3-4.7); Potassium 3.4 mEq/L (3.5-4.5); Sodium 143 mEq/L (136-145); eGFR For African Americans > 60 (> 60); eGFR For Non-African Americans > 60 (> 60)
[2016-07-23] MEDS: *HR* Enoxaparin 40 MG/0.4 ML SYRINGE SQ SCH (07:31)
[2016-07-23] MEDS: 0.9 % Sodium Chloride 1,000 ML IVC SCH ×2 (07:33→11:48)
[2016-07-23] MEDS: Pantoprazole 40 MG VIAL IVP SCH (07:57)
[2016-07-23] MEDS: lamoTRIgine 100 MG TABLET PO SCH ×2 (07:57→22:20)
--- NOTE | 2016-07-23 09:00 | General Surgery Progress Note ---
Date of Encounter: 07/23/16 Time of Encounter: 08:10 - Assessment and Plan (1) Small bowel obstruction Current Visit: No Status: Acute CT abd/pelvis showed small obstruction involving portions of the ileum and jejunum with transition point anterior mid abdomen in the midline possibly relating to adhesions. NG tube removed today. Advanced diet to clear liquids. Anti-emetics PRN for nausea Supportive care/pain control Decrease IV fluids to @75ml/hr Patient had a bowel movement yesterday. 1/2 bottle of Mg Citrate given today. Will continue to follow and evaluate. (2) History of colon cancer Current Visit: Yes Status: Acute (3) Hypertension Current Visit: Yes Status: Chronic Continued management per medicine service Qualifiers: Hypertension type: essential hypertension Qualified Code(s): I10 - Essential (primary) hypertension (4) DVT prophylaxis Current Visit: Yes Status: Acute Ambulate with assistance anti-embolic stockings Lovenox 40mg SQ daily Subjective Patient reports: voiding w/o difficulty, flatus, bowel movement, afebrile Narrative: Reported new epigastric burning pain last night that was improved with Protonix. She reported having one bowel movement last night. States she does not have an appetite yet, but has not had any nausea or vomiting with her NG tube to gravity and continuing to intake ice chips. Objective Vital Signs - Last 8 Hours Temp Pulse Resp BP Pulse Ox 07/23/16 06:59 98.2 F 70 17 157/85 97 07/23/16 03:11 98.6 F 78 18 141/71 94 L Intake and Output 07/22/16 07/23/16 07/23/16 23:59 07:59 15:59 Intake Total 1800 / 1800 1270 / 1270 Output Total 900 / 900 250 / 250 Balance 900 / 900 1020 / 1020 Intake: IV Fluids 1000 / 1000 1000 / 1000 0.9 % Sodium Chloride 1, 1000 / 1000 1000 / 1000 000 ML @ 125 mls/hr IVC . Q8H [facility] Rx#:[id number] Oral 800 / 800 270 / 270 Output: Urine 300 / 300 250 / 250 Gastric Drainage 600 / 600 0 / 0 Other: Meal npo Weight 111.811 kg Blood Glucose* 82 85 Patient Weight 07/23/16 23:59 Weight 111.811 kg - General physical appearance well developed, well nourished, no distress - Eyes normal ocular movement - Neck Neck exam: trachea midline - Respiratory normal respiratory effort, clear to auscultation - Cardiovascular Cardiovascular exam: Present: RRR - Abdomen Abdomen: Present: bowel sounds present, soft, non tender - Integumentary no rash - Neurologic CN 2-12 grossly intact - Musculoskeletal normal posture - Psychiatric oriented to time, oriented to person, oriented to place, speech is normal, memory intact - Labs 07/23/16 05:15 07/23/16 05:15 Diabetes panel 07/23/16 Range/Units 05:15 Sodium 143 (136-145) mEq/L Potassium 3.4 L (3.5-4.5) mEq/L Chloride 107 (98-109) mEq/L Carbon Dioxide 26 (19-29) mEq/L BUN 17 (7-20) mg/dL Creatinine 0.71 (0.57-1.11) mg/dL Glucose 82 (70-99) mg/dL Calcium 8.8 (8.6-10.8) mg/dL Calcium panel 07/23/16 Range/Units 05:15 Calcium 8.8 (8.6-10.8) mg/dL Phosphorus 3.7 (2.3-4.7) mg/dL Pituitary panel 07/23/16 Range/Units 05:15 Sodium 143 (136-145) mEq/L Potassium 3.4 L (3.5-4.5) mEq/L Chloride 107 (98-109) mEq/L Carbon Dioxide 26 (19-29) mEq/L BUN 17 (7-20) mg/dL Creatinine 0.71 (0.57-1.11) mg/dL Glucose 82 (70-99) mg/dL Calcium 8.8 (8.6-10.8) mg/dL Adrenal panel 07/23/16 Range/Units 05:15 Sodium 143 (136-145) mEq/L Potassium 3.4 L (3.5-4.5) mEq/L Chloride 107 (98-109) mEq/L Carbon Dioxide 26 (19-29) mEq/L BUN 17 (7-20) mg/dL Creatinine 0.71 (0.57-1.11) mg/dL Glucose 82 (70-99) mg/dL Calcium 8.8 (8.6-10.8) mg/dL - VTE Documentation of Mechanical Device: Graduated compression elastic hosiery Consult Discharge Plan - Plan Referrals: Scotty Ayala DO [Primary Care Provider] - 07/31/16 9:30 am - Attending Attestation I examined this patient and my medical decision-making was reviewed with the ASSEMBLER MOLDED FRAMES/PA/Advanced Practice Nurse/Resident Physician. I agree with the documented findings, disposition and treatment plan as described except to the extent set forth below.
[2016-07-23] MEDS ORDERED: 0.9 % Sodium Chloride 1,000 ML IVC SCH (09:42)
[2016-07-23] MEDS ORDERED: Potassium Chloride Elixir 20 MEQ/15 ML UDC PO ONE (11:23)
[2016-07-23] MEDS: Lisinopril-HCTZ 20-12.5mg TABLET PO SCH (11:47)
[2016-07-23] MEDS: *HR* LORazepam 0.5 MG TABLET PO PRN (11:48)
--- NOTE | 2016-07-23 17:50 | Internal Med Progress Note ---
Date of Encounter: 07/23/16 Time of Encounter: 10:45 - Assessment and plan (1) Small bowel obstruction Current Visit: Yes Status: Acute Assessment and plan: due to multiple abdominal surgeries including partial colectomy; improving currently; Surgery on board; NG tube discontinued today per Surgery; start clear liquid diet and advance as tolerated; supportive care; monitor and replete electrolytes. (2) Palpitations Current Visit: Yes Status: Acute Assessment and plan: Patient has h/o- intermittent palpitations due to PVCs; start Telemetry monitoring and resume home dose of benzodiazepines for anxiety; continue to monitor; (3) Anemia Current Visit: Yes Status: Chronic Qualifiers: Anemia type: unspecified type Qualified Code(s): D64.9 - Anemia, unspecified (4) Chronic pain Current Visit: Yes Status: Chronic Assessment and plan: patient noted to be on multiple meds for anxiety, depression, chronic pain; continue home meds; Qualifiers: Chronic pain type: chronic pain syndrome Qualified Code(s): G89.4 - Chronic pain syndrome (5) History of colon cancer Current Visit: Yes Status: Inactive (6) Hypertension Current Visit: Yes Status: Chronic Qualifiers: Hypertension type: essential hypertension Qualified Code(s): I10 - Essential (primary) hypertension (7) Morbid obesity with BMI of 40.0-44.9, adult Current Visit: Yes Status: Chronic (8) Breast cancer, right Current Visit: Yes Status: Inactive Assessment and plan: s/p bilateral mastectomy; Qualifiers: Breast location: unspecified site of breast Patient sex: female Qualified Code(s): C50.911 - Malignant neoplasm of unspecified site of right female breast - Subjective Interval history: Improving abdominal pain; no nausea, vomiting; having flatus and small bowel movements; NG tube removed today by Surgery team; - Constitutional Vitals: Temp Pulse Resp BP Pulse Ox 99.3 F 78 17 167/87 96 07/23/16 14:57 07/23/16 14:57 07/23/16 14:57 07/23/16 14:57 07/23/16 14:57 General appearance: Present: A&O X 3, morbidly obese, answers questions appropriately - Respiratory Respiratory exam: Present: CTAB. Absent: accessory muscle use, rales, rhonchi, wheezes - Cardiovascular Cardiovascular exam: Present: RRR, +S1, +S2, tachycardia. Absent: diastolic murmur, gallop, rubs, systolic murmur - GI/Abdominal GI/Abdominal exam: Present: diminished bowel sounds, soft (obese, nontender), no peritoneal signs. Absent: distended, tenderness Internal Medicine: Result - Labs CBC & Chem 7: 07/23/16 05:15 07/23/16 05:15 Labs: Short CBC 07/23/16 Range/Units 05:15 WBC 10.0 (4.3-11.1) K/mcL Hgb 10.2 L (11.5-15.4) g/dL Hct 32.5 L (35.3-44.9) % Plt Count 292 (140-400) K/mcL Neutrophils # 7.2 (1.6-8.9) K/mcL BMP 07/23/16 05:15 Sodium 143 Potassium 3.4 L Chloride 107 Carbon Dioxide 26 BUN 17 Creatinine 0.71 Glucose 82 Calcium 8.8 - VTE Documentation of Mechanical Device: Graduated compression elastic hosiery Consult Discharge Plan - Plan Referrals: Scotty Ayala DO [Primary Care Provider] - 07/31/16 9:30 am
[2016-07-23] MEDS: Anastrozole 1 MG TABLET PO SCH (22:21)
[2016-07-24] MEDS: Ketorolac 30 MG/ML VIAL IVP PRN (02:02)
[2016-07-24] MEDS: *HR* LORazepam 0.5 MG TABLET PO PRN (03:08)
[2016-07-24] MEDS: 0.9 % Sodium Chloride 1,000 ML IVC SCH (03:08)
[2016-07-24 05:38] LABS: BUN/Creatinine Ratio 12 (6-26); Blood Urea Nitrogen 9 mg/dL (7-20); Calcium 8.6 mg/dL (8.6-10.8); Carbon Dioxide 26 mEq/L (19-29); Chloride 102 mEq/L (98-109); Glucose 106 mg/dL (70-99); Osmolality,Calculated 283 (280-300); Potassium 3.5 mEq/L (3.5-4.5); Sodium 137 mEq/L (136-145); eGFR For African Americans > 60 (> 60); eGFR For Non-African Americans > 60 (> 60)
[2016-07-24] MEDS: *HR* Methadone 10 MG TABLET PO SCH (05:47)
[2016-07-24] MEDS: *HR* Enoxaparin 40 MG/0.4 ML SYRINGE SQ SCH (05:49)
[2016-07-24 07:31] VITALS: BP 137/75
--- NOTE | 2016-07-24 09:09 | General Surgery Progress Note ---
Date of Encounter: 07/24/16 Time of Encounter: 08:15 - Assessment and Plan (1) Small bowel obstruction Current Visit: Yes Status: Acute CT abd/pelvis showed small obstruction involving portions of the ileum and jejunum with transition point anterior mid abdomen in the midline possibly relating to adhesions. NG tube removed yesterday. Advance diet to full. Anti-emetics PRN for nausea Supportive care/pain control IV no longer in place. Patient had multiple watery bowel movements yesterday after being given Mg Citrate followed by two well formed bowel movements yesterday evening. Surgery will sign off at this time, thank you for involving us in this patient' s care, please feel free to contact us with any questions. (2) History of colon cancer Current Visit: Yes Status: Inactive (3) Hypertension Current Visit: Yes Status: Chronic Continued management per medicine service Qualifiers: Qualified Code(s): I10 - Essential (primary) hypertension (4) DVT prophylaxis Current Visit: Yes Status: Acute Ambulate with assistance anti-embolic stockings Lovenox 40mg SQ daily Subjective Patient reports: no new complaints, feels better, tolerating liquids well, voiding w/o difficulty, bowel movement, afebrile Narrative: Patient states she feels much better, has no nausea or vomiting, has return of her appetite and wises to go home. Objective Vital Signs - Last 8 Hours Temp Pulse Resp BP Pulse Ox 07/24/16 07:25 98.0 F 77 16 137/75 96 07/24/16 04:18 98.4 F 77 16 124/77 94 L Intake and Output 07/23/16 07/24/16 07/24/16 23:59 07:59 15:59 Intake Total 967 / 967 763 / 763 Output Total 1300 / 1300 Balance 967 / 967 -537 / -537 Intake: IV Fluids 487 / 487 513 / 513 0.9 % Sodium Chloride 1, 487 / 487 513 / 513 000 ML @ 60 mls/hr IVC . [id number] [facility] Rx#: [id number] Oral 480 / 480 250 / 250 Output: Urine 1300 / 1300 Other: Weight 108.272 kg Patient Weight 07/24/16 23:59 Weight 108.272 kg - General physical appearance well developed, well nourished, no distress - Eyes normal ocular movement - ENT normal mucosa - Neck Neck exam: trachea midline - Respiratory normal respiratory effort, clear to auscultation - Cardiovascular Cardiovascular exam: Present: RRR - Abdomen Abdomen: Present: bowel sounds present, soft, non tender - Integumentary no rash - Neurologic CN 2-12 grossly intact - Musculoskeletal normal gait, normal posture - Psychiatric oriented to time, oriented to person, oriented to place, speech is normal, memory intact - Labs 07/23/16 05:15 07/24/16 04:43 Diabetes panel 07/24/16 Range/Units 04:43 Sodium 137 (136-145) mEq/L Potassium 3.5 (3.5-4.5) mEq/L Chloride 102 (98-109) mEq/L Carbon Dioxide 26 (19-29) mEq/L BUN 9 (7-20) mg/dL Creatinine 0.76 (0.57-1.11) mg/dL Glucose 106 H (70-99) mg/dL Calcium 8.6 (8.6-10.8) mg/dL Calcium panel 07/24/16 Range/Units 04:43 Calcium 8.6 (8.6-10.8) mg/dL Pituitary panel 07/24/16 Range/Units 04:43 Sodium 137 (136-145) mEq/L Potassium 3.5 (3.5-4.5) mEq/L Chloride 102 (98-109) mEq/L Carbon Dioxide 26 (19-29) mEq/L BUN 9 (7-20) mg/dL Creatinine 0.76 (0.57-1.11) mg/dL Glucose 106 H (70-99) mg/dL Calcium 8.6 (8.6-10.8) mg/dL Adrenal panel 07/24/16 Range/Units 04:43 Sodium 137 (136-145) mEq/L Potassium 3.5 (3.5-4.5) mEq/L Chloride 102 (98-109) mEq/L Carbon Dioxide 26 (19-29) mEq/L BUN 9 (7-20) mg/dL Creatinine 0.76 (0.57-1.11) mg/dL Glucose 106 H (70-99) mg/dL Calcium 8.6 (8.6-10.8) mg/dL - VTE Documentation of Mechanical Device: Graduated compression elastic hosiery Consult Discharge Plan - Plan Referrals: Scotty Ayala DO [Primary Care Provider] - 07/31/16 9:30 am - Attending Attestation I examined this patient and my medical decision-making was reviewed with the TAKER OFF DRYING KILN/PA/Advanced Practice Nurse/Resident Physician. I agree with the documented findings, disposition and treatment plan as described except to the extent set forth below.
[2016-07-24] MEDS: Lisinopril-HCTZ 20-12.5mg TABLET PO SCH (09:25)
[2016-07-24] MEDS: Pantoprazole 40 MG VIAL IVP SCH (09:25)
[2016-07-24] MEDS: lamoTRIgine 100 MG TABLET PO SCH (09:25)
--- NOTE | 2016-07-24 10:17 | Discharge Summary ---
Date of Encounter: 07/24/16 Time of Encounter: 10:14 - Discharge Diagnosis (1) Small bowel obstruction Priority: Primary Status: Acute (2) Palpitations Priority: Primary Status: Resolved (3) Anemia Priority: Secondary Status: Chronic Qualifiers: Anemia type: unspecified type Qualified Code(s): D64.9 - Anemia, unspecified (4) Chronic pain Priority: Secondary Status: Chronic Qualifiers: Chronic pain type: chronic pain syndrome Qualified Code(s): G89.4 - Chronic pain syndrome (5) History of colon cancer Priority: Secondary Status: Inactive (6) Hypertension Priority: Secondary Status: Chronic Qualifiers: Hypertension type: essential hypertension Qualified Code(s): I10 - Essential (primary) hypertension (7) Morbid obesity with BMI of 40.0-44.9, adult Priority: Secondary Status: Chronic (8) Breast cancer, right Priority: Secondary Status: Inactive Qualifiers: Breast location: unspecified site of breast Patient sex: female Qualified Code(s): C50.911 - Malignant neoplasm of unspecified site of right female breast - Discharge Medications Prescriptions: Omeprazole [PriLOSEC] 20 mg PO DAILY #30 cap Home Medications: Ibuprofen [Motrin] 800 mg PO Q8HR PRN 05/02/15 [History] Lamotrigine [Lamictal] 100 mg PO BID 05/02/15 [History] Methadone 10 mg PO Q12HR 05/02/15 [History] Anastrozole [Arimidex] 1 mg PO HS 07/19/16 [History] DiphenhydraMINE [Benadryl] 25 mg PO HS PRN 07/19/16 [History] LORazepam [Ativan] 0.5 mg PO BID PRN 07/19/16 [History] Lisinopril/Hydrochlorothiazide [Zestoretic 20-12.5 mg Tablet] 1 each PO QAM 03/25 [History] Oxycodone HCl/Acetaminophen [Percocet 5-325 mg Tablet] 1 each PO TID PRN [History] Sennosides/Docusate Sodium [Senna Plus] 4 each PO HS PRN 07/19/16 [History] Omeprazole [PriLOSEC] 20 mg PO DAILY #30 cap 07/24/16 [Rx] Allergies/Adverse Reactions: Allergies Erythromycin Base Allergy (Verified 05/02/15 19:29) Anaphylaxis Penicillins [PCN] Allergy (Verified 05/02/15 19:29) Rash Tetracycline Allergy (Verified 05/02/15 19:29) Anaphylaxis Date of admission: 07/19/16 21:44 Primary care physician: Scotty Ayala, Consults: 07/19/16 21:50 Consult to Surgery [CONS] Routine Consulting Provider: [facility] Reason for Consult: 56F with SBO on Abd CT. Call Completed: Yes Discharging clinician: Zaida Camacho Anticipated date of discharge: 07/24/16 - Patient Status Disposition: Home, Self-Care Condition: Good Functional capacity at discharge: independent ambulation Overall status at discharge: patient is back to baseline - Discharge Instructions Follow Up With: Scotty Ayala DO [Primary Care Provider] - 07/31/16 9:30 am - Diet and Activity Activity: resume usual activities as tolerated Diet: advance to your usual diet Hospital course: Ms. Blackman is a 56 year old female with several medical problems, who was admitted with acute onset of abdominal pain along with nausea and vomiting. CT abdomen/pelvis done in the emergency room showed changes suggestive of small bowel obstruction. She was placed on nasogastric tube with intermittent suctioning for gastric decompression. She was kept nothing by mouth along with IV hydration, pain control and when necessary antiemetics. Surgery was consulted and agreed with this management. Electrolytes were followed and supplemented as needed. Patient gradually improved on this regimen and was able to tolerate oral diet. She does not require any surgical intervention at this time and is medically stable for discharge with outpatient follow-up. - Time Spent with Patient Total time spent providing and/or coordinating discharge services: Greater than 30 minutes (45 min) - Constitutional Vitals: Temp Pulse Resp BP Pulse Ox 98.0 F 77 16 137/75 96 07/24/16 07:25 07/24/16 07:25 07/24/16 07:25 07/24/16 07:25 07/24/16 07:25 General appearance: Present: A&O X 3, morbidly obese, answers questions appropriately - Respiratory Respiratory exam: Present: CTAB. Absent: accessory muscle use, rales, rhonchi, wheezes - GI/Abdominal GI/Abdominal exam: Present: normal bowel sounds, soft, no peritoneal signs. Absent: distended, tenderness - VTE Documentation of Mechanical Device: Graduated compression elastic hosiery
== END 2016-07-24 10:42 | disposition home or self-care (01) | DRG 389 ==
LOC: 3ANU → SUATTDRO 21:44
PROVIDERS: ADMIT Family Medicine; ATTEND Internal Medicine

== ENCOUNTER 2022-01-07 09:20 | Inpatient (IN) ==
[2022-01-07] MEDS ORDERED: cefTRIAXone 1,000 MG in 0.9 % Sodium Chloride 10 ML IVP ONE (09:54)
[2022-01-07] MEDS ORDERED: 0.9 % Sodium Chloride 1,000 ML IVC ONE (09:54)
[2022-01-07] MEDS ORDERED: Ipratropium/Albuterol Neb 3 ML IH ONE ×2 (09:54→15:22)
[2022-01-07] MEDS ORDERED: methylPREDNISolone 125 MG/2 ML VIAL IVP ONE (09:54)
[2022-01-07] MEDS ORDERED: Iopamidol - 370 500 ML MLS IVP ONE (09:54)
[2022-01-07 10:38] LABS: Basophils # 0.1 K/mcL (0.0-0.2); Basophils % 0.8 %; Eosinophils # 0.8 K/mcL (0.0-0.6); Eosinophils % 7.8 %; Hematocrit 36.7 % (35.3-44.9); Hemoglobin 11.4 g/dL (11.5-15.4); Immature Granulocytes % 0.5 % (0-4); Lymphocytes # 1.6 K/mcL (0.6-4.6); Mean Corpuscular HGB Conc 31.1 g/dL (31.6-35.5); Mean Corpuscular Hemoglobin 28.3 pg (28.0-33.3); Mean Corpuscular Volume 91.1 fL (83.0-100.0); Mean Platelet Volume 9.9 fL (9.4-12.4); Monocytes # 0.7 K/mcL (0.0-1.3); Monocytes % 6.8 %; Neutrophils # 6.9 K/mcL (1.6-8.9); Platelet Count 356 K/mcL (140-400); Red Blood Count 4.03 M/mcL (3.82-4.97); Red Cell Distribution Width 14.9 % (11.5-14.5); Segmented Neutrophils % 68.1 %; White Blood Count 10.1 K/mcL (4.3-11.1)
[2022-01-07 10:46] LABS: INR 0.9; Prothrombin Time 10.5 Seconds (9.4-12.1)
[2022-01-07 10:49] LABS: Activated Partial Thrombo Time 30.4 Seconds (26.0-36.0)
[2022-01-07 10:59] LABS: BUN/Creatinine Ratio 29 (6-26); Blood Urea Nitrogen 29 mg/dL (8-23); Carbon Dioxide 22 mEq/L (23-29); Chloride 103 mEq/L (98-107); Glucose 188 mg/dL (70-105); Osmolality,Calculated 289 (280-300); Potassium 5.5 mEq/L (3.5-5.1); Sodium 134 mEq/L (136-145); Troponin I < 0.03 ng/mL (< 0.04); eGFR For African Americans > 60 (> 60); eGFR For Non-African Americans 56 (> 60)
[2022-01-07 11:25] LABS: Adenovirus Not Detected (Not Detect); Bordetella Pertussis Not Detected (Not Detect); Chlamydophila pneumoniae Not Detected (Not Detect); Coronavirus 229E Not Detected (Not Detect); Coronavirus HKU1 Not Detected (Not Detect); Coronavirus NL63 Not Detected (Not Detect); Coronavirus OC43 Not Detected (Not Detect); Human Metapneumovirus Not Detected (Not Detect); Human Rhinovirus/Enterovirus Not Detected (Not Detect); Influenza A Subtype 2009 H1 Not Detected (Not Detect); Influenza B Not Detected (Not Detect); Mycoplasma pneumoniae Not Detected (Not Detect); Parainfluenza Virus 1 Not Detected (Not Detect); Parainfluenza Virus 2 Not Detected (Not Detect); Parainfluenza Virus 3 Not Detected (Not Detect); Parainfluenza Virus 4 Not Detected (Not Detect); Respiratory Syncytial Virus Not Detected (Not Detect)
[2022-01-07 11:27] LABS: SARS-CoV-2 DETECTED (Not Detect)
[2022-01-07] MEDS ORDERED: Ondansetron 4 MG/2 ML VIAL IVP PRN (13:24)
[2022-01-07] MEDS ORDERED: D5% in Water 1,000 ML IVC PRN (13:24)
[2022-01-07] MEDS ORDERED: Dextrose Gel 15 GM/37.5 ML TUBE PO PRN ×2 (13:24)
[2022-01-07] MEDS ORDERED: Naloxone 0.4 MG/ML INJ IVP PRN (13:24)
[2022-01-07] MEDS ORDERED: *HR* Dextrose 50 % in Water (Syg) 50 ML SYRINGE IVP PRN (13:24)
[2022-01-07] MEDS ORDERED: Azithromycin 500 MG in 0.9 % Sodium Chloride 250 ML IVPB SCH (14:00)
[2022-01-07] MEDS: Insulin LISPRO 300 UNITS/3 ML VIAL SUBQ SCH (17:51)
[2022-01-07] MEDS: *HR* LORazepam 0.5 MG TABLET PO PRN (21:14)
[2022-01-07] MEDS ORDERED: Levalbuterol Neb 1.25 MG/3 ML IH PRN (22:18)
[2022-01-07] MEDS ORDERED: *HR* Labetalol 20 MG/4 ML SYRINGE IVP ONE (22:18)
[2022-01-07] MEDS: Acetaminophen 325 MG TABLET PO PRN (23:05)
[2022-01-08] MEDS ORDERED: Melatonin 3 MG TABLET PO ONE (03:48)
[2022-01-08] MEDS: Gabapentin 300 MG CAPSULE PO SCH ×5 (04:17→22:13)
[2022-01-08] MEDS ORDERED: *HR* Enoxaparin 40 MG/0.4 ML SYRINGE SQ SCH (06:00)
[2022-01-08 06:14] LABS: Basophils % 0.2 %; Eosinophils % 0.1 %; Hematocrit 34.4 % (35.3-44.9); Hemoglobin 10.6 g/dL (11.5-15.4); Lymphocytes # 1.4 K/mcL (0.6-4.6); Lymphocytes % 9.1 %; Mean Corpuscular HGB Conc 30.8 g/dL (31.6-35.5); Mean Corpuscular Volume 90.8 fL (83.0-100.0); Monocytes % 5.4 %; Platelet Count 327 K/mcL (140-400); Red Blood Count 3.79 M/mcL (3.82-4.97); Red Cell Distribution Width 14.7 % (11.5-14.5); Segmented Neutrophils % 84.2 %
[2022-01-08 06:17] LABS: Monocytes # 0.8 K/mcL (0.0-1.3); Neutrophils # 13.1 K/mcL (1.6-8.9); White Blood Count 15.6 K/mcL (4.3-11.1)
[2022-01-08 07:15] LABS: BUN/Creatinine Ratio 25 (6-26); Blood Urea Nitrogen 23 mg/dL (8-23); Calcium 9.2 mg/dL (8.6-10.3); Carbon Dioxide 19 mEq/L (23-29); Chloride 106 mEq/L (98-107); Glucose 200 mg/dL (70-105); Magnesium 1.9 mg/dL (1.6-2.6); Osmolality,Calculated 289 (280-300); Sodium 135 mEq/L (136-145); eGFR For African Americans > 60 (> 60); eGFR For Non-African Americans > 60 (> 60)
[2022-01-08] MEDS: lamoTRIgine 100 MG TABLET PO SCH ×2 (08:48→22:13)
[2022-01-08] MEDS: Acetaminophen 325 MG TABLET PO PRN (08:48)
[2022-01-08] MEDS: Insulin LISPRO 300 UNITS/3 ML VIAL SUBQ SCH ×3 (08:50→17:38)
[2022-01-08] MEDS ORDERED: cefTRIAXone 1,000 MG in Water for inj. (sterile) 10 ML IVP SCH (09:00)
[2022-01-08] MEDS ORDERED: *HR* OxyCODONE/APAP 5/325 TABLET PO PRN (09:51)
[2022-01-08] MEDS: *HR* Methadone 10 MG TABLET PO SCH ×2 (10:38→22:13)
[2022-01-08] MEDS: Budesonide/Formoterol 160/4.5 1 PUFF INH IH SCH ×2 (11:04→20:19)
[2022-01-08] MEDS ORDERED: *HR* OxyCODONE Immed Rel 5 MG TABLET PO PRN ×2 (11:14→14:22)
[2022-01-08] MEDS ORDERED: *HR* HYDROmorphone PF 0.5 MG/0.5 ML SYRINGE IVP PRN ×2 (11:14→14:22)
[2022-01-08] MEDS ORDERED: Ondansetron 4 MG/2 ML VIAL IVP PRN ×2 (11:14→14:22)
[2022-01-08] MEDS ORDERED: Promethazine 6.25 MG in Water for inj. (sterile) 20 ML IVPB PRN ×2 (11:14→14:22)
[2022-01-08] MEDS ORDERED: Azithromycin 250 MG TABLET PO SCH (11:30)
[2022-01-08] MEDS ORDERED: predniSONE 20 MG TABLET PO SCH (11:30)
[2022-01-08] MEDS ORDERED: Ondansetron 4 MG/2 ML VIAL ONE (14:19)
[2022-01-08] MEDS ORDERED: *HR* FentaNYL (PF) 100 MCG/2 ML VIAL ONE ×2 (14:19→15:26)
[2022-01-08] MEDS ORDERED: *HR* Rocuronium Bromide 50 MG/5 ML VIAL ONE (14:19)
[2022-01-08] MEDS ORDERED: *HR* Midazolam HCl 2 MG/2 ML VIAL ONE (14:19)
[2022-01-08] MEDS ORDERED: *HR* Succinylcholine 200 MG/10 ML VIAL IVP ONE (14:19)
[2022-01-08] MEDS ORDERED: Lidocaine -MPF 4% 5 ML AMPUL ONE (14:19)
[2022-01-08] MEDS ORDERED: *HR* Propofol 200 MG/20 ML VIAL IVP ONE (14:19)
[2022-01-08] MEDS ORDERED: Lidocaine -MPF 2% 5 ML VIAL ONE (15:03)
[2022-01-08] MEDS ORDERED: EPHEDrine 50 MG/ML VIAL ONE (15:04)
[2022-01-08] MEDS ORDERED: *HR* EPINEPHrine 1 MG/10 ML SYRINGE INTRATRACH PRN (15:24)
[2022-01-08 19:58] LABS: Source of Body Fluid LEFT LOWER LOBE LUNG
[2022-01-08 21:30] LABS: Appearance of Body Fluid Hazy (Clear); Volume of Body Fluid 22 mL
[2022-01-08] MEDS ORDERED: D5% in Water 1,000 ML IVC PRN (21:41)
[2022-01-08] MEDS ORDERED: Dextrose Gel 15 GM/37.5 ML TUBE PO PRN ×2 (21:41)
[2022-01-08] MEDS ORDERED: *HR* Dextrose 50 % in Water (Syg) 50 ML SYRINGE IVP PRN (21:41)
[2022-01-08] MEDS ORDERED: Insulin LISPRO 300 UNITS/3 ML VIAL SUBQ SCH (21:45)
[2022-01-08] MEDS: *HR* LORazepam 0.5 MG TABLET PO PRN (22:13)
[2022-01-09] MEDS: Gabapentin 300 MG CAPSULE PO SCH ×2 (05:25→11:24)
[2022-01-09 07:17] VITALS: BP 132/73; PULSE 83; TEMP 98.2
[2022-01-09] MEDS: Budesonide/Formoterol 160/4.5 1 PUFF INH IH SCH (07:52)
[2022-01-09] MEDS ORDERED: amLODIPine 5 MG TABLET PO SCH (09:00)
[2022-01-09 10:37] VITALS: O2SAT 94
[2022-01-09] MEDS: *HR* Methadone 10 MG TABLET PO SCH (11:24)
[2022-01-10 10:13] LABS: ANA IgG by ELISA NONE DETECTED (None Detected)
[2022-01-11 12:09] LABS: Mycoplasma pneumoniae IgG 0.1 U/L (<=0.09)
[2022-01-12 01:35] LABS: ANCA IFA Titer <1:20 (<1:20)
[2022-01-12 12:11] LABS: ANCA IFA Pattern NONE DETECTED (None Detected); Serine Protease-3 Antibody 2 AU/mL (0-19)
== END 2022-01-09 14:25 | disposition home or self-care (01) | DRG 853 ==
LOC: EMEROOARM 09:20 → 3ANU 09:20 → SUATTDRO 16:56
PROVIDERS: ADMIT Internal Medicine; ATTEND Internal Medicine